=== PATIENT | female | born 1985 | race African-American/Black ===

== ENCOUNTER 2018-05-11 00:41 | Emergency (ER) | payer SELFPAY ==
[~2018-05-11] VITALS: Ht 167.6 cm; Wt 59.0 kg
[~2018-05-11 00:41] MED LIST: ALDOMET250 MG OR; AMOXICILLIN875 MG OR; BACTRIM DS1 TAB PO; CEPHALEXIN500 MG PO; CIPRO500 MG OR; FLEXERIL PO; LORTAB 5 OR; MACROBID100 MG OR; MUPIROCIN2 % EX; NAPROSYN500 MG OR; NAPROSYN500 MG PO; NO; NO HOME MEDS; ORTHO TRI-CY OR; PENICILLN VK500 MG PO; PRENATABS FA OR; PRENATABS OR; REGLAN10 MG OR; ULTRAM50 M1 PO; ZOFRAN ODT4 MG OR
[2018-05-11 02:09] LABS: URINE BILIRUBIN - DIPSTICK NEGATIVE (NEGATIVE); URINE BLOOD DIPSTICK TRACE-INTACT (NEGATIVE); URINE COLOR YELLOW; URINE GLUCOSE - DIPSTICK NEGATIVE (NEGATIVE); URINE KETONE NEGATIVE (NEGATIVE); URINE LEUK ESTERASE NEGATIVE (NEGATIVE); URINE NITRITE - DIPSTICK NEGATIVE (Negative); URINE PROTEIN - DIPSTICK NEGATIVE (NEG-TRACE); URINE UROBILINOGEN - DIPSTICK 0.2 E.U./dL (0.2)
[2018-05-11 02:09] LABS: HEMOGLOBIN 13.3 g/dl (12.0-16.0); IMMATURE GRANULOCYTES 0.3 % (0.0-5.0); MEAN CELL VOLUME 85.3 fL CALC (80.0-100.0); MEAN CORPUSCULAR HGB 27.1 pG CALC (26.0-32.0); MEAN CORPUSCULAR HGB CONC 31.7 g/L CALC (32.0-36.0); NEUT# 6.51 thou/uL (2.00-7.15); RED BLOOD COUNT 4.91 mill/uL (4.20-5.60); RED CELL DISTRI WIDTH 15.9 % (11.5-15.5)
[2018-05-11 02:10] LABS: HEMATOCRIT 41.9 % (37.0-47.0)
[2018-05-11 02:10] LABS: URINE CLARITY TURBID
[2018-05-11 02:13] LABS: URINE BACTERIA FEW hpf; URINE MUCUS MODERATE hpf (NONE-FEW); URINE RBC 0-2 RBC/hpf (0-5); URINE SQUAMOUS EPITHELIAL CELL MANY EPI/hpf (0-FEW); URINE WBC 0-2 WBC/hpf (0-5)
[2018-05-11 02:15] LABS: BARBITURATES NEGATIVE (NEGATIVE); COCAINE NEGATIVE (NEGATIVE); METHADONE NEGATIVE (NEGATIVE); OXCYCODONE NEGATIVE (NEGATIVE); TETRAHYDROCANNABIONOL NEGATIVE (NEGATIVE); TRICYLIC ANTIDEPRESSANTS NEGATIVE (NEGATIVE)
[2018-05-11 02:22] LABS: ALBUMIN 4.6 g/dL (3.2-5.0); ALKALINE PHOSPHATASE 128 u/l (38-126); ANION GAP 15 (6-22 (CALC)); BILIRUBIN, TOTAL 0.4 mg/dL (0.0-1.4); BUN 13 mg/dL (7-17); BUN/CREATININE RATIO 18 (12-20 (CALC)); CARBON DIOXIDE 28 mmol/l (22-30); CHLORIDE 104 mmol/l (95-108); CREATININE 0.7 mg/dL (0.5-1.0); GFR > 60 ML/MIN (>=60 (CALC)); GFR FOR AFR.AMER. > 60 ML/MIN (>=60 (CALC)); POTASSIUM 4.6 mmol/l (3.5-5.1); SGOT/AST 24 u/l (14-36); SODIUM 143 mmol/l (137-146)
[2018-05-11 04:24] VITALS: BP 132/83
== END 2018-05-11 03:35 | disposition home or self-care (01) | DRG 103 ==
LOC: ED 00:41
PROVIDERS: Emergency Medicine
DX: R51 Headache (principal); R11.2 Nausea with vomiting, unspecified; H53.149 Visual discomfort, unspecified; F17.210 Nicotine dependence, cigarettes, uncomplicated

== ENCOUNTER 2018-12-28 12:03 | Emergency (ER) | payer SELFPAY ==
[~2018-12-28] VITALS: Ht 167.6 cm; Wt 59.0 kg
[2018-12-28] MEDS ORDERED: TESSALON PERLE100 MG PO (13:53)
[2018-12-28] MEDS ORDERED: PREDNISONE20 MG PO (13:53)
[2018-12-28 13:56] VITALS: BP 152/92
== END 2018-12-28 14:03 | disposition home or self-care (01) | DRG 866 ==
LOC: ED 12:03
DX: B34.9 Viral infection, unspecified (principal); I10 Essential (primary) hypertension

== ENCOUNTER 2020-02-24 05:08 | Emergency (ER) | payer SELFPAY ==
[~2020-02-24] VITALS: Ht 167.6 cm; Wt 56.8 kg
[~2020-02-24 05:08] MED LIST changes: +PREDNISONE20 MG PO; +TESSALON PERLE100 MG PO
[2020-02-24 05:41] LABS: HEMATOCRIT 42.1 % (37.0-47.0); HEMOGLOBIN 12.7 g/dl (12.0-16.0); IMMATURE GRANULOCYTES 0.4 % (0.0-5.0); MEAN CORPUSCULAR HGB CONC 30.2 g/dL CAL (32.0-36.0); NEUT# 8.52 thou/uL (2.00-7.15); RED BLOOD COUNT 5.07 mill/uL (4.20-5.60); RED CELL DISTRI WIDTH 16.7 % (11.5-15.5)
[2020-02-24 05:42] LABS: URINE BILIRUBIN - DIPSTICK NEGATIVE (NEGATIVE); URINE BLOOD DIPSTICK MODERATE (NEGATIVE); URINE COLOR YELLOW; URINE GLUCOSE - DIPSTICK NEGATIVE (NEGATIVE); URINE KETONE >=80 mg/dL (NEGATIVE); URINE LEUK ESTERASE TRACE (NEGATIVE); URINE PROTEIN - DIPSTICK TRACE mg/dL (NEG-TRACE); URINE SPECIFIC GRAVITY >=1.030; URINE UROBILINOGEN - DIPSTICK 0.2 E.U./dL (0.2)
[2020-02-24 05:47] LABS: URINE NITRITE - DIPSTICK NEGATIVE (Negative)
[2020-02-24 05:50] LABS: URINE EPITHELIAL CELLS MODERATE EPI/hpf (0-FEW)
[2020-02-24 05:51] LABS: URINE BACTERIA FEW hpf; URINE MUCUS MODERATE hpf (NONE-FEW); URINE TRICHOMONAS MODERATE hpf
[2020-02-24 06:11] LABS: ALBUMIN 5.2 g/dL (3.2-5.0); ALKALINE PHOSPHATASE 123 u/l (38-126); AMYLASE 86 u/l (30-110); BUN 16 mg/dL (7-17); BUN/CREATININE RATIO 22 (12-20 (CALC)); CHLORIDE 103 mmol/l (95-108); CREATININE 0.7 mg/dL (0.5-1.0); GFR > 60 ML/MIN (>=60 (CALC)); GFR FOR AFR.AMER. > 60 ML/MIN (>=60 (CALC)); LIPASE 129 u/l (23-300); SGOT/AST 28 u/l (14-36); SODIUM 137 mmol/l (137-146); TOTAL PROTEIN 8.7 g/dL (6.3-8.2)
[2020-02-24 06:12] LABS: ANION GAP 18 (6-22 (CALC)); BILIRUBIN, TOTAL 1.1 mg/dL (0.0-1.4); CARBON DIOXIDE 20 mmol/l (22-30); POTASSIUM 3.6 mmol/l (3.5-5.1)
[2020-02-24] MEDS ORDERED: ZOFRAN4 MG/TAB PO (08:30)
[2020-02-24] MEDS ORDERED: METRONIDAZOL500 MG PO (08:30)
[2020-02-24] MEDS ORDERED: IBUPROFEN600 MG PO (08:30)
[2020-02-24] MEDS ORDERED: KEFLEX500 M1 PO (08:30)
[2020-02-24 09:15] VITALS: BP 135/74
== END 2020-02-24 09:15 | disposition home or self-care (01) | DRG 759 ==
LOC: ED 05:08
DX: A59.01 Trichomonal vulvovaginitis (principal); A59.03 Trichomonal cystitis and urethritis; I10 Essential (primary) hypertension
CPT/HCPCS: Q9967

== ENCOUNTER 2022-10-07 15:47 | Emergency (ER) | payer OTHER ==
[~2022-10-07] VITALS: Ht 167.6 cm; Wt 65.0 kg
[~2022-10-07 15:47] MED LIST changes: +IBUPROFEN600 MG PO; +KEFLEX500 M1 PO; +METRONIDAZOL500 MG PO; +ZOFRAN4 MG/TAB PO
[2022-10-07 17:53] VITALS: BP 175/100
[2022-10-07 17:55] VITALS: BP 160/84
[2022-10-07 18:00] VITALS: BP 168/86
[2022-10-07] MEDS ORDERED: CLINDAMYCIN300 M1 PO (18:28)
[2022-10-07 18:30] VITALS: BP 167/86
[2022-10-07 18:47] VITALS: BP 176/69
[2022-10-07 18:55] VITALS: BP 176/69
== END 2022-10-07 19:07 | disposition home or self-care (01) ==
LOC: ED 15:47
DX: K02.9 Dental caries, unspecified (principal); I10 Essential (primary) hypertension

== ENCOUNTER 2024-04-12 20:56 | Emergency (ER) | payer OTHER ==
[~2024-04-12] VITALS: Ht 167.6 cm; Wt 65.0 kg
[~2024-04-12 20:56] MED LIST changes: +CLINDAMYCIN300 M1 PO
[2024-04-12] MEDS ORDERED: SODIUM CHLORIDE 0.9% 1,000 ML IV STA (21:18)
[2024-04-12] MEDS ORDERED: PROMETHAZINE HCL 25 MG/ML AMP IV ONE (21:20)
[2024-04-12] MEDS ORDERED: KETOROLAC TROMETHAMINE 30 MG/ML SDV IV ONE (21:20)
[2024-04-12] MEDS ORDERED: LACTATED RINGER'S 1,000 ML IV ONE (21:20)
[2024-04-12] MEDS ORDERED: ACETAMINOPHEN 500 MG TAB PO ONE (21:20)
[2024-04-12 21:21] VITALS: BP 162/79
[2024-04-12 21:51] LABS: BASO% 0.7 % (0-3); EOS% 1.3 % (0-8); IMMATURE GRANULOCYTES 0.1 % (0.0-5.0); LYMPH% 23.7 % (15-41); MEAN CORPUSCULAR HGB 18.9 pG CALC (26.0-32.0); MEAN CORPUSCULAR HGB CONC 28.8 g/dL CAL (32.0-36.0); MONO% 6.4 % (2-13); NEUT# 5.86 thou/uL (2.00-7.15); NEUT% 67.8 % (42-76); RED BLOOD COUNT 4.61 mill/uL (4.20-5.60); RED CELL DISTRI WIDTH 19.2 % (11.5-15.5)
[2024-04-12 21:53] LABS: HEMATOCRIT 30.2 % (37.0-47.0); HEMOGLOBIN 8.7 g/dl (12.0-16.0); MEAN CELL VOLUME 65.5 fL CALC (80.0-100.0)
[2024-04-12 21:56] LABS: URINE BILIRUBIN - DIPSTICK Negative (NEGATIVE); URINE BLOOD DIPSTICK Trace-lysed (NEGATIVE); URINE GLUCOSE - DIPSTICK Negative (NEGATIVE); URINE KETONE 40 mg/dL (NEGATIVE); URINE NITRITE - DIPSTICK Negative (Negative); URINE PROTEIN - DIPSTICK Trace mg/dL (NEG-TRACE); URINE SPECIFIC GRAVITY 1.025
[2024-04-12 21:59] LABS: URINE COLOR Yellow; URINE LEUK ESTERASE Small (NEGATIVE)
[2024-04-12 22:02] LABS: URINE RBC 0-2 RBC/hpf (0-5)
[2024-04-12 22:03] LABS: URINE SQUAMOUS EPITHELIAL CELL MANY EPI/hpf (0-FEW); URINE TRICHOMONAS MANY hpf
[2024-04-12 22:18] LABS: ALBUMIN 4.2 g/dL (3.2-5.0); BILIRUBIN, TOTAL 0.9 mg/dL (0.02-1.3); CREATININE 0.6 mg/dL (0.5-1.0); POTASSIUM 4.1 mmol/l (3.5-5.1); TOTAL PROTEIN 7.3 g/dL (6.3-8.2)
[2024-04-12] MEDS ORDERED: PROMETHAZINE HY25 M1 PO (22:55)
[2024-04-12] MEDS ORDERED: METRONIDAZOLE500 MG PO (22:55)
[2024-04-12] MEDS ORDERED: CHROMAGEN1 CAP PO (22:55)
[2024-04-12] MEDS ORDERED: NAPROXEN375 MG PO (22:57)
[2024-04-12 23:08] VITALS: BP 162/79
== END 2024-04-12 23:12 | disposition home or self-care (01) ==
LOC: ED 20:56
PROVIDERS: Family Medicine
DX: N94.6 Dysmenorrhea, unspecified (principal); A59.01 Trichomonal vulvovaginitis; I10 Essential (primary) hypertension; Z20.822 Contact with and (suspected) exposure to COVID-19